=== PATIENT | female | born 1960 | race Caucasian/White ===

== ENCOUNTER 2019-01-20 14:54 | Emergency (ER) | payer MEDICARE, OTHER ==
[~2019-01-20] VITALS: Ht 175.3 cm; Wt 54.4 kg
[2019-01-20 15:02] VITALS: BP 116/68
--- NOTE | 2019-01-20 15:08 | NUR ---
PER [facility] PT FELL ON PADDED FLOOR FROM FALL OUT OF BED APROXIMATLY 2FT HIGH. PT REPORTS LT LEG PAIN AT 6/10, RT ARM PAIN AT 4/10. PER [facility] PT IS WORRIED ABOUT POSSIBLE INFECTION ON RT 1ST TOE FROM HAVING HANG NAIL REMOVED. PT HAS TRAC FROM RESPIRATORY FAILURE SECONDARY TO HEMORRHAGE FROM FALL. PT [place] [facility] PT IS THERE FOR RECOVERY FROM ALCOHOL ABUSE. . DENIES N/V/D; SKIN IS PINK/WARM/DRY; AAOX4 LUNGS CLEAR BL; HR EVEN AND REGULAR; PT DENIES ANY FEVER, CP, SOB, OR COUGH AT THIS TIME; PATIENT STATES PAIN OF 6/10 AT THIS TIME; VSS; PATIENT POSITIONED FOR COMFORT; HOB ELEVATED; BEDRAILS UP X2; BED DOWN. ER MD MADE AWARE OF PT STATUS.
--- NOTE | 2019-01-20 15:35 | NUR ---
Dr. George evaluating patient at bedside.
[2019-01-20] MEDS ORDERED: ACETAMINOPHEN 160 MG/5 ML UDC GT ONE (15:50)
--- NOTE | 2019-01-20 15:51 | NUR ---
facilities operations technician at bedside.
--- NOTE | 2019-01-20 17:00 | NUR ---
PT CALLED IN, UPDATED PT'S CONDITION. PT REQUESTED TO HAVE A HEAD CT DUE TO PT HAD BRAIN SURGERY IN OCT 2018 IN [place], TRIED TO TRANSFER PHONE CALL TO , PT'S HANGED UP WHEN PICKED UP PHONE. PASSED ALL THE INFORMATION TO DR. RICHARDSON.
--- NOTE | 2019-01-20 17:07 | NUR ---
PT LEFT FOR CT PER TECH VIA [facility].
--- NOTE | 2019-01-20 18:02 | NUR ---
PT HAD BM, CLEANED PT. NEW DIAPER APPLIED.
--- NOTE | 2019-01-20 18:21 | NUR ---
DR RICHARDSON TALKING ON THE PHONE WITH PT'S [facility].
--- NOTE | 2019-01-20 18:27 | NUR ---
DR RICHARDSON WILL CALL PT'S PRIMARY DR AND TALKED WITH HIM REGARDING PT'S CARE. AFTER WHICH RN WILL CALL PT'S ([facility] @ [phone]) FOR UPDATE REGARDING UPDATE ON PT'S CARE.
--- NOTE | 2019-01-20 18:42 | NUR ---
CALLED [facility] AT [phone] AND LEFT MESSAGE TO INFORM HIM HIS WOULD BE RETURNED TO THE FACILITY
--- NOTE | 2019-01-20 19:00 | NUR ---
PT TRIED TO GET OUT OF BED, EXPLAINED TO PT WE ARE WAITING FOR A RIDE TO TAKE HER BACK TO [facility] .
--- NOTE | 2019-01-20 19:09 | NUR ---
REPORT GIVEN TO PM NURSE MONTES DE OCA.
--- NOTE | 2019-01-20 19:15 | NUR ---
[facility] HERE FOR PT PICKUP.
--- NOTE | 2019-01-20 19:23 | NUR ---
SPOKE TO AND INFORMED HIM PT WAS RETURNING.
--- NOTE | 2019-01-20 19:23 | NUR ---
[facility] AT BEDSIDE TO TRANSPORT PT BACK TO FACILITY. Patient discharged with v/s stable. Written and verbal after care instructions given and explained. Patient acting appropriate to baseline. Patient verbalized understanding. Ambulance Transport with to [facility]p. All questions addressed prior to discharge. was contacted and make aware of patients return to facility. Advised to follow up with PMD.
[2019-01-20 19:26] VITALS: BP 118/61
--- NOTE | 2019-01-20 19:26 | NUR ---
SPOKE TO [facility] INFORMING THEM THAT PT IS RETURNING.
== END 2019-01-20 19:23 | disposition home or self-care (01) ==
LOC: MED 14:54
DX: S49.82XA Other specified injuries of left shoulder and upper arm, initial encounter (principal); R51 Headache; E11.9 Type 2 diabetes mellitus without complications; G40.909 Epilepsy, unspecified, not intractable, without status epilepticus; Z98.890 Other specified postprocedural states; Z93.1 Gastrostomy status; Z86.79 Personal history of other diseases of the circulatory system; W19.XXXA Unspecified fall, initial encounter; Y93.89 Activity, other specified; Y92.89 Other specified places as the place of occurrence of the external cause; Y99.8 Other external cause status
CPT/HCPCS: 70450; 73030; 99284; Q0092

== ENCOUNTER 2019-03-05 19:49 | Inpatient (IN) | payer MEDICARE, OTHER ==
[~2019-03-05] VITALS: Ht 165.1 cm; Wt 58.5 kg
[2019-03-05 19:49] VITALS: BP 130/85
--- NOTE | 2019-03-05 19:49 | NUR ---
59 Y/O FEMALE BIB EMS FROM [facility] WITH C/O ALTERED LEVEL OF CONSCIOUSS. PER DAUGHTER PT IS NORMALLY AOX4 TOOK SZ MEDICATIONS IS NOW ALTERED. PT ALSO REPORTS CHEST PAIN. 0.4 MG NITRO WAS GIVEN BY EMS. DAUGHTER ALSO REPORTS FALL 03/04/19. PT ON O2 NC @2LPM UPON ARRIVAL. SNORING WITH RESPIRATIONS WHILE AWAKE. SLOW TO RESPOND. MAKES EYE CONTACT. CONFUSED TO DAY/TIME/EVENT. FOLLOWS COMMANDS. REPORTED NONAMBULATORY BUT MOVES IN BED. POSITIONED IN BED WITH X2 SIDE RAILS UP. ER MD AT BEDSIDE FOR EVALUATION. CONTINUE TO MONITOR. PMH---CIRRHOSIS, EPILEPSY, TBI, NONAMBULATORY, DM, HYPOTENSION, ALCOHOLISM NKA
--- NOTE | 2019-03-05 19:49 | NUR ---
PATIENT BIB EMS TO ER BED 8.
[2019-03-05] MEDS ORDERED: NACL 0.9% 500 ML IV SCH (20:04)
[2019-03-05] MEDS ORDERED: LANS15EC28 PEG (20:09)
[2019-03-05] MEDS ORDERED: BISA-213 RC (20:09)
[2019-03-05] MEDS ORDERED: THIA-34 PO (20:09)
[2019-03-05] MEDS ORDERED: SPIR50TA GT (20:09)
[2019-03-05] MEDS ORDERED: [UNRECOGNIZED DRUG - CODE] GT (20:09)
[2019-03-05] MEDS ORDERED: SODI100076 GT (20:09)
[2019-03-05] MEDS ORDERED: LACT10SO1 PO (20:09)
[2019-03-05] MEDS ORDERED: RIFA550T GT (20:09)
[2019-03-05] MEDS ORDERED: DOCU-299 PEG (20:09)
[2019-03-05] MEDS ORDERED: KEP500 GT (20:09)
[2019-03-05] MEDS ORDERED: MAGN400S60 PEG (20:09)
[2019-03-05] MEDS ORDERED: MIRT15TA GT (20:12)
--- NOTE | 2019-03-05 20:25 | NUR ---
Dr. Francisco examining patient.
[2019-03-05 20:36] LABS: BASOPHILS % (AUTO) 0.4 % (0.0-2.0); EOSINOPHILS # (AUTO) 0.1 K/uL (0-0.4); HEMATOCRIT 35.2 % (36-48); HEMOGLOBIN 12.4 g/dL (12.0-16.0); LYMPHOCYTES % (AUTO) 15.2 % (20.5-51.1); MEAN CORPUSCULAR HEMOGLOBIN 33 pg (27-31); MEAN CORPUSCULAR HGB CONC 35 g/dL (33-37); MEAN CORPUSCULAR VOLUME 92.9 fL (80-94); MONOCYTES # (AUTO) 0.3 K/uL (0.8-1.0); MONOCYTES % (AUTO) 4.4 % (1.7-9.3); NEUTROPHILS # (AUTO) 5.5 K/uL (1.8-7.7); RED BLOOD CELL COUNT(AUTO) 3.79 MIL/uL (4.20-5.40); RED CELL DISTRIBUTION WIDTH 13.5 % (11.6-13.7); WHITE BLOOD COUNT (AUTO) 6.9 K/uL (4.8-10.8)
--- NOTE | 2019-03-05 20:36 | NUR ---
PT WAS TAKEN OFF 02 BY ER . PT TOLERATED WELL. 02 SAT IS 100 % ON ROOM AIR. CONT. TO MONITOR.
[2019-03-05 20:37] LABS: PLATELET COUNT (AUTO) 74 K/uL (140-450)
--- NOTE | 2019-03-05 20:40 | NUR ---
PT TOLLERATING RA. 02SAT 98%, RR 18. NO N/V. NO CP. CONTINUE TO MONITOR.
--- NOTE | 2019-03-05 20:53 | NUR ---
STRAIGHT CATH WAS DONE, PT TOLERATED WELL. U/A COLLECTED.
[2019-03-05 20:58] LABS: ALBUMIN 3.8 g/dL (3.4-5.0); ANION GAP 17.2 (8-16); CARBON DIOXIDE 22.7 mmol/L (21-32); CREATININE 1.1 mg/dL (0.6-1.3); POTASSIUM 3.9 mmol/L (3.5-5.1)
--- NOTE | 2019-03-05 21:00 | NUR ---
PT IN BED RESTING. PT AWAKE. SNORING WITH RESPIRATIONS SUBSIDED. FOLLOWS COMMANDS AND SPEECH CLEARING. CONTINUE TO MONITOR.
--- NOTE | 2019-03-05 21:05 | NUR ---
PT RETURN FROM RAD
--- NOTE | 2019-03-05 21:10 | NUR ---
PT'S [facility] KUMAR CALLED ER. HE WANTED DETAILED MEDICAL INFORMATION GIVEN OVER THE PHONE. HE WAS DENIED AND EXPLAINED THAT SPECIFIC INFORMATION CANNOT BE GIVEN D/T HIPPA LAWS. HE WAS IRATE AND SPOKE TO MOBILITY ARCHITECT MANAGER. JH STATES THAT HE WANTS PT TRANSFERED TO [place]. HE WAS INFORMED THAT WE CANNOT DO THAT EITHER. HE THEN STATED THAT IF HE HAS TO COME TO THE HOSPITAL THAT WE NEED TO CALL THE POLICE BECASUSE HE WILL PHYSICALLY HARM STAFF.
[2019-03-05] MEDS ORDERED: LACTULOSE 20 GM/30 ML UDC PO ONE (21:30)
[2019-03-05 21:36] LABS: APPEARANCE,URINE HAZY (CLEAR); BILIRUBIN,URINE NEGATIVE (NEGATIVE); BLOOD, URINE TRACE-L (NEGATIVE); COLOR,URINE YELLOW (YELLOW); LEUKOCYTE ESTERASE ,URINE NEGATIVE (NEGATIVE); NITRITE, URINE NEGATIVE (NEGATIVE); PH,URINE 6.5 (5.0-9.0); UGLUCOSE NEGATIVE (NEGATIVE)
--- NOTE | 2019-03-05 22:00 | NUR ---
PT ANSWERING QUESTIONS APPROPRIATELY. SHE ASKED FOR . PT INFORMED THAT HE MAY COME TO THE HOSPITAL. SHE IS ALERT TO NAME AND EVENT. SPEECH IS CLEAR BUT SLOW. SHE FOLLOWS COMMANDS APPROPRIATELY. VSS. CONTINUE TO MONITOR.
[2019-03-05] MEDS ORDERED: NACL 0.9% 1,000 ML IV SCH (22:22)
[2019-03-05] MEDS ORDERED: DOCUSATE SODIUM 100 MG GELCAP PO PRN (22:25)
[2019-03-05] MEDS ORDERED: ACETAMINOPHEN 325 MG TAB PO PRN (22:25)
[2019-03-05] MEDS ORDERED: ZOLPIDEM 5 MG TAB PO PRN (22:25)
[2019-03-05] MEDS ORDERED: ONDANSETRON 4 MG/2 ML VIAL IM/IVP PRN (22:25)
[2019-03-05] MEDS ORDERED: HYDROcodone/APAP 5/325 MG 1 TAB TAB PO PRN (22:25)
[2019-03-05] MEDS ORDERED: MORPHINE SULFATE 2 MG/ML SYR IVP PRN (22:25)
[2019-03-05] MEDS ORDERED: ALBUTEROL SULFATE/IPRATROPIU 3 ML SOL IH PRN (22:35)
[2019-03-05] MEDS ORDERED: MAGNESIUM HYDROXIDE 2400 MG/30 ML UDC PEG SCH (22:35)
[2019-03-05 22:45] LABS: BARBITURATE, URINE NEG. ng/ml (NEG <=200); BENZODIAZEPINE, URINE NEG. ng/mL (NEG <=200); CANNABINOID, URINE NEG. ng/mL (NEG <=50); COCAINE, URINE NEG. ng/mL (NEG <=300); OPIATE, URINE NEG. ng/mL (NEG <=2000); PHENCYCLIDINE SCREEN,URINE NEG. ng/mL (NEG <=25)
[2019-03-05 22:55] VITALS: BP 139/77
--- NOTE | 2019-03-05 22:55 | NUR ---
REPORT GIVEN AND CARE TRANSFERED TO MICHELLE RN ROOM 119A. TRANSFERED VIA GURNEY WITH VSS.
[2019-03-05 22:57] LABS: CHOL/HDL RATIO 3.1 (1-4.5); MAGNESIUM 1.9 mg/dL (1.8-2.4); THYROID STIMULATING HORMONE 9.57 uIU/mL (0.34-3.74)
--- NOTE | 2019-03-05 23:00 | NUR ---
PT BROUGHT UP TO UNIT VIA GURNEY AND TRANSFERRED TO 119A. REPORT GIVEN BY PEDRO MAYO RN. PT AWAKE BUT DROWSY RESPONDS TO NAME AND LIGHT TOUCH. PERRLA. PT SKIN INTACT. SHE DOES HAVE G TUBE. PT INCONTINENT AND UNABLE TO AMBULATE. PT ON FALLS AND SEIZURE PRECAUTIONS FOR HX OF EPILEPSY. IV SITE 22G LEFT HAND INTACT AND FLUSHED PATENT.
[2019-03-05] MEDS ORDERED: NITROGLYCERIN 0.4 MG TAB SL PRN (23:25)
[2019-03-06] MEDS ORDERED: MAGNESIUM HYDROXIDE 2400 MG/30 ML UDC PO PRN (00:05)
[2019-03-06] MEDS: DEXT 5% /NACL 0.9% 1,000 ML IV SCH ×2 (00:50→15:53)
--- NOTE | 2019-03-06 02:00 | NUR ---
PT ASLEEP IN BED NO S/S OF PAIN OR DISTRESS NOTED. ALL FALLS AND SEIZURE PRECAUTION IN PLACE.
[2019-03-06 04:00] VITALS: BP 127/71
--- NOTE | 2019-03-06 04:30 | NUR ---
PT TURNED , CHANGED AND REPOSITIONED. ALL FALLS AND SEIZURE PRECAUTIONS IN PLACE. PT IS AOX1. PT REORIENTED. IV SITE IN PLACE AND RUNNING FLUID ORDERED.
--- NOTE | 2019-03-06 05:40 | NUR ---
SPOKE WITH JH OF 37 YEARS, IS [employer]. HIS NUMBER IS . HE WAS UPDATED ON PT CONDITION AND HE SPOKE WITH RESIDENT WHO IS CONFUSED AND TRYING TO GET OUT OF BED. AFTER PHONE CONVERSATION, PT WENT BACK TO SLEEP.
[2019-03-06 06:24] LABS: ANION GAP 17.3 (8-16); CARBON DIOXIDE 21.5 mmol/L (21-32); CREATININE 1.1 mg/dL (0.6-1.3); POTASSIUM 3.8 mmol/L (3.5-5.1)
[2019-03-06 06:26] LABS: MAGNESIUM 1.8 mg/dL (1.8-2.4); PHOSPHORUS 4.2 mg/dL (2.5-4.9)
[2019-03-06] MEDS: LEVOTHYROXINE 0.025 MG TAB PO SCH (06:43)
--- NOTE | 2019-03-06 06:51 | NUR ---
FINGERSTICK IS 169 PT GIVEN ORDERED SYNTHROID
[2019-03-06 07:00] LABS: BASOPHILS % (AUTO) 0.5 % (0.0-2.0); EOSINOPHILS # (AUTO) 0.1 K/uL (0-0.4); EOSINOPHILS % (AUTO) 1.8 % (0.0-4.0); HEMATOCRIT 30.7 % (36-48); HEMOGLOBIN 10.9 g/dL (12.0-16.0); LYMPHOCYTES # (AUTO) 1.2 K/uL (2.5-16.5); LYMPHOCYTES % (AUTO) 27.8 % (20.5-51.1); MEAN CORPUSCULAR HEMOGLOBIN 33 pg (27-31); MEAN CORPUSCULAR HGB CONC 36 g/dL (33-37); MEAN CORPUSCULAR VOLUME 93.3 fL (80-94); MONOCYTES # (AUTO) 0.2 K/uL (0.8-1.0); MONOCYTES % (AUTO) 4.9 % (1.7-9.3); NEUTROPHILS # (AUTO) 2.9 K/uL (1.8-7.7); RED BLOOD CELL COUNT(AUTO) 3.29 MIL/uL (4.20-5.40); RED CELL DISTRIBUTION WIDTH 13.4 % (11.6-13.7)
--- NOTE | 2019-03-06 07:30 | NUR ---
CARE ENDORSED TO AM SHIFT, PT IN STABLE CONDITION.
--- NOTE | 2019-03-06 07:31 | NUR ---
RECEIVED BEDSIDE REPORT FROM YARA MADRIGAL. PATIENT ON TELE MONITOR AND STANDARD PRECAUTIONS IN PLACE. PATIENT AAOX3 AND PATIENT ON BEDREST, ON ROOM AIR, AND SKIN INTACT. IV ON L FA 22 G INFUSING D5 NS AT 60, IV PATENT AND INTACT. BED IN LOW POSITION, CALL LIGHT WITHIN REACH, SIDE RAILS X2 UP
[2019-03-06] MEDS: ALBUTEROL SULFATE/IPRATROPIU 3 ML SOL IH SCH ×3 (07:46→19:25)
[2019-03-06 08:00] VITALS: BP 128/75
[2019-03-06] MEDS ORDERED: LANSOPRAZOLE 30 MG CAPDR GT SCH (08:00)
[2019-03-06 08:07] LABS: PLATELET COUNT (AUTO) 57 K/uL (140-450); WHITE BLOOD COUNT (AUTO) 4.5 K/uL (4.8-10.8)
[2019-03-06] MEDS: PROPRANOLOL 20 MG TAB GT SCH ×2 (08:35→20:40)
[2019-03-06] MEDS: THIAMINE 100 MG TAB PO SCH (08:35)
[2019-03-06] MEDS: SPIRONOLACTONE 50 MG TAB GT SCH (08:36)
[2019-03-06] MEDS: LISINOPRIL 5 MG TAB PO SCH (08:36)
[2019-03-06] MEDS: LACTULOSE 20 GM/30 ML UDC PO SCH ×2 (08:37→20:41)
[2019-03-06] MEDS: levETIRAcetam 100 MG/ML ORASYR GT SCH ×2 (08:37→20:40)
[2019-03-06] MEDS: RIFAXIMIN 550 MG TAB GT SCH ×2 (08:38→20:41)
--- NOTE | 2019-03-06 08:47 | NUR ---
PATIENT HAS BEEN SCREENED AND CATEGORIZED HIGH NUTRITION RISK. PATIENT WILL BE SEEN WITHIN 1-2 DAYS OF ADMISSION. 03/06/19-03/07/[address]
[2019-03-06] MEDS ORDERED: SODIUM CHLORIDE 1 GM TAB GT SCH (09:00)
[2019-03-06] MEDS ORDERED: METOPROLOL 25 MG TAB PO SCH (09:00)
[2019-03-06] MEDS ORDERED: ASPIRIN 81 MG TAB.CHEW PO SCH (09:00)
[2019-03-06] MEDS ORDERED: NON-FORMULARY ITEM (Lansoprazole* (Prevacid 24Hr*) 30 MG) PEG SCH (09:00)
--- NOTE | 2019-03-06 09:04 | NUR ---
ADMINISTERED SCHEDULED MEDS. PATIENT TOLERATED WELL. GASTRIC RESIDUAL 5 ML AND SWOOSH HEARD, FLUSHED BEFORE AND AFTER MEDS
[2019-03-06 12:00] VITALS: BP 133/78
--- NOTE | 2019-03-06 12:20 | NUR ---
SW called patient�s to conduct an assessment. Patient�s , Venu Bhatti [phone]. Venu stated that patient was under the care of Dr. Turner but could not recall PCP or her last appointment. Patient stated that patient stays at [facility], but would prefer to not return. Patient verified emergency contact information and stated that patient is dependent with all ADLs. Venu stated that his plans after discharge would preferably be for patient to be admitted to [facility] or [facility], but would accept returning to [facility] if other SNFs are not available. SW/CM will follow up as needed.
--- NOTE | 2019-03-06 12:24 | NUR ---
CALLED [facility] AND REQUESTING IF [facility]NOTE 3[facility] OR [facility] ARE CONTRACTED (PER FAMILY REQUEST) [facility] IS CONTRACTED AND FAXED ALL PAPER WORK [phone] AND WILL FOLLOW UP.
--- NOTE | 2019-03-06 12:53 | NUR ---
PATIENT EATING LUNCH, ON ROOM AIR, NO DISTRESS NOTED
--- NOTE | 2019-03-06 14:22 | NUR ---
03/06/19 RD INITIAL ASSESSMENT COMPLETED PLEASE REFER TO NUTRITION ASSESSMENT UNDER CARE ACTIVITY FOR ESTIMATED NUTRITIONAL NEEDS. 1. RECOMMEND SWALLOW EVALUATION 2. RECOMMEND CCHO 60 HEPATIC DIET WITH TEXTURE AND LIQUID CONSISTENCY SUGGESTED BY SWALLOW EVALUATION. 3. IF PT FAILS SWALLOW EVALUATION, RECOMMEND GLUCERNA 1.2 AT 55 ML/HR AND FREE WATER FLUSH 80 ML Q6H. 4. RECOMMEND MVI 5. RD TO FOLLOW-UP 2-3 DAYS, HIGH RISK [address]
[2019-03-06] MEDS: LORazepam 2 MG/ML VIAL IM/IVP PRN (15:42)
--- NOTE | 2019-03-06 15:46 | NUR ---
ADMINISTERED ATIVAN PRN. DR. QUEZADA AWARE. PATIENT TRYING TO GET OUT OF BED, PULLING OUT G TUBE, AND PULLING AT IV SITE
[2019-03-06 16:00] VITALS: BP 135/83
--- NOTE | 2019-03-06 16:43 | NUR ---
PATIENT CONFUSED THROUGHOUT DAY UNABLE TO FOLLOW COMMANDS FOR INCENTIVE SPIROMETRY Addendum: 03/06/19 at 1648 by Ruslan Gomez RT NP TO FOLLOW UP WITH MD FOR FURTHER RECOMMENDATIONS
--- NOTE | 2019-03-06 16:49 | NUR ---
CALLED DR KAREN QUEZADA PAGER #[phone] LEFT RETURN #[phone] FOR REVIEW OF INCENTIVE SPIROMETRY ORDER AND PATIENT LOC NOTED AT 2659
--- NOTE | 2019-03-06 17:17 | NUR ---
PATIENT REMOVING SOCKS, SHEETS, PULLING AT IV WITH LEGS DANGLED ON THE SIDE OF THE BED TRYING TO GET OUT OF BED. DR. QUEZADA MADE AWARE, WILL COME TO SEE PATIENT
[2019-03-06] MEDS ORDERED: LORazepam 2 MG/ML VIAL IM/IVP SCH (18:15)
--- NOTE | 2019-03-06 18:52 | NUR ---
PT TOO AGITATED. UNABLE TO DO ECHOCARDIOGRAM. WILL TRY AGAIN TOMORROW.
--- NOTE | 2019-03-06 19:05 | NUR ---
BEDSIDE REPORT GIVEN TO YARA CASTANEDA. PATIENT ENDORSED IN STABLE CONDITION
--- NOTE | 2019-03-06 19:25 | NUR ---
RECEIVED PT IN STABLE CONDITION FROM [facility] NURSE FOR CONTINUITY OF CARE. PT IS ASLEEP. ON TELE MONITOR. RESPIRATION EVEN AND UNLABORED. WITH HL ON THE LT HAND G#22. IVF TO CONTINUE . BED ON LOW POSITION. SIDE RAILS UP AND PADDED FOR SEIZURE PRECAUTION. CALL LIGHT PLACED WITHIN EASY REACH. WILL CONTINUE TO MONITOR.
--- NOTE | 2019-03-06 19:29 | NUR ---
GIVING HHN TX. PT KEEPS TAKING MASK OFF. RN AT BEDSIDE. NO SOB OR DISTRESS NOTED.
--- NOTE | 2019-03-06 20:30 | NUR ---
HAD A MODERATE AMOUNT FORMED STOOL. CLEANED AND KEPT DRY.
[2019-03-06 20:38] VITALS: BP 129/67
[2019-03-06] MEDS: ATORVASTATIN 20 MG TAB PO SCH (20:41)
[2019-03-06] MEDS: MIRTAZAPINE 15 MG TAB GT SCH (20:41)
[2019-03-06] MEDS: PANTOPRAZOLE 40 MG TABEC PO SCH (20:41)
--- NOTE | 2019-03-06 21:30 | NUR ---
PT IS ASLEEP. NO S/S DISCOMFORT /PAIN NOTED. WILL CONTINUE TO MONITOR.
--- NOTE | 2019-03-06 22:30 | NUR ---
PT IS ASLEEP. NO S/S OF ANY DISCOMFORT AND ANY RESPIRATORY DISTRESS NOTED. WILL CONTINUE TO MONITOR.
[2019-03-06 23:52] VITALS: BP 148/76
--- NOTE | 2019-03-06 23:55 | NUR ---
PT IS ASLEEP. BUT WOKE UP I CHECKED VITAL SIGNS. NO C/O ANY DISCOMFORT NOR DISTRESS NOTED .
--- NOTE | 2019-03-07 02:30 | NUR ---
PT AWAKE, STARTING TO PULL OUT IV TUBINGS. KEEP TUNINGS OUT OF SITE . WILL CONTINUE TO MONITOR.
[2019-03-07] MEDS: LORazepam 2 MG/ML VIAL IM/IVP PRN ×3 (03:03→21:33)
--- NOTE | 2019-03-07 03:03 | NUR ---
PT VERY CONFUSED AND TRYING TO PULL OUT TUBINGS AND GETTING OUT OF BED. ATIVAN IVP 1 MG GIVEN. WILL CONTINUE TO MONITOR.
[2019-03-07] MEDS: DEXT 5% /NACL 0.9% 1,000 ML IV SCH ×2 (04:34→17:00)
[2019-03-07 04:45] VITALS: BP 122/77
--- NOTE | 2019-03-07 05:00 | NUR ---
PT IS ASLEEP. WILL CONTINUE TO MONITOR.
--- NOTE | 2019-03-07 05:44 | NUR ---
NO BM THIS AM. WILL STILL NEED TO COLLECT STOOL SPECIMEN FOR OB. WILL ENDORSED TO AM NURSE.
[2019-03-07] MEDS: LEVOTHYROXINE 0.025 MG TAB PO SCH (06:16)
[2019-03-07] MEDS ORDERED: LANSOPRAZOLE 30 MG CAPDR GT SCH (06:30)
[2019-03-07] MEDS: ALBUTEROL SULFATE/IPRATROPIU 3 ML SOL IH SCH ×3 (06:37→19:15)
--- NOTE | 2019-03-07 06:44 | NUR ---
PT IS STILL CONFUSED. FREQUENT REORIENTATION DONE.
[2019-03-07 07:21] LABS: BASOPHILS % (AUTO) 0.4 % (0.0-2.0); EOSINOPHILS # (AUTO) 0.1 K/uL (0-0.4); EOSINOPHILS % (AUTO) 1.9 % (0.0-4.0); HEMATOCRIT 30.4 % (36-48); LYMPHOCYTES # (AUTO) 1.1 K/uL (2.5-16.5); LYMPHOCYTES % (AUTO) 30.9 % (20.5-51.1); MEAN CORPUSCULAR HEMOGLOBIN 34 pg (27-31); MEAN CORPUSCULAR HGB CONC 36 g/dL (33-37); MEAN CORPUSCULAR VOLUME 93.3 fL (80-94); MONOCYTES # (AUTO) 0.2 K/uL (0.8-1.0); MONOCYTES % (AUTO) 6.8 % (1.7-9.3); NEUTROPHILS # (AUTO) 2.1 K/uL (1.8-7.7); PLATELET COUNT (AUTO) 60 K/uL (140-450); RED BLOOD CELL COUNT(AUTO) 3.26 MIL/uL (4.20-5.40); RED CELL DISTRIBUTION WIDTH 13.1 % (11.6-13.7); WHITE BLOOD COUNT (AUTO) 3.5 K/uL (4.8-10.8)
--- NOTE | 2019-03-07 07:25 | NUR ---
ENDORSED PT IN STABLE CONDITION TO AM NURSE.
--- NOTE | 2019-03-07 07:26 | NUR ---
RECEIVED REPORT FROM HUMAN RESOURCES RECORDS CLERK NURSE. PATIENT LYING DOWN IN BED CONFUSED, TRYING TO GET UP AND PULLING ON IV TUBES. AAOX1, CONFUSED. SKIN COLOR APPROPRIATE TO ETHNICITY, WARM TO TOUCH. RESPIRATIONS EVEN, UNLABORED, ON ROOM AIR. ABDOMEN SOFT, NON-DISTENDED. GTUBE SITE IN PLACE AND INTACT. REVIEWED PLAN OF CARE WITH PATIENT. PATIENT VERBALIZED UNDERSTANDING. SAFETY MEASURES IN PLACE, CALL LIGHT WITHIN REACH. WILL CONTINUE TO MONITOR.
[2019-03-07 07:34] LABS: ANION GAP 14.4 (8-16); CARBON DIOXIDE 21.5 mmol/L (21-32); POTASSIUM 3.9 mmol/L (3.5-5.1)
[2019-03-07 08:00] VITALS: BP 160/79
[2019-03-07] MEDS: LACTULOSE 20 GM/30 ML UDC PO SCH ×2 (09:51→20:32)
[2019-03-07] MEDS: levETIRAcetam 100 MG/ML ORASYR GT SCH ×2 (09:51→20:32)
[2019-03-07] MEDS: PANTOPRAZOLE 40 MG TABEC PO SCH ×2 (09:51→20:31)
[2019-03-07] MEDS: MULTIVITAMIN 1 TAB PO SCH (09:51)
[2019-03-07] MEDS: THIAMINE 100 MG TAB PO SCH (09:51)
[2019-03-07] MEDS: RIFAXIMIN 550 MG TAB GT SCH ×2 (09:51→20:31)
[2019-03-07] MEDS: LISINOPRIL 5 MG TAB PO SCH (09:52)
[2019-03-07] MEDS: SPIRONOLACTONE 50 MG TAB GT SCH (09:52)
[2019-03-07] MEDS: PROPRANOLOL 20 MG TAB GT SCH ×2 (09:52→20:32)
--- NOTE | 2019-03-07 10:05 | NUR ---
PATIENT LYING DOWN IN BED. PATIENT IN AND OUT OF SLEEPING. AT BEDSIDE. PATIENT CONTINUES TO BE CONFUSED. SCHEDULED MEDICATIONS DUE GIVEN. WILL CONTINUE TO MONITOR.
--- NOTE | 2019-03-07 12:11 | NUR ---
DC PLANNING Called & spoke w beverley Lea Davy, ph [phone], states will be ok w pt going back to [facility] only if Dr Flood is going to be following pt there. [facility] not [facility] different [facility]. Left msg for Dr Flood if going to be following pt @ [facility]. Addendum: 03/07/19 at 1449 by Shireen Damon CM Called & spoke nika Flood states will be able to follow pt @ [facility] but not until March 20. Called & spoke w beverley Lea & informed, states ok for pt to dc back to [facility], aware Dr Flood not starting until March 20.
--- NOTE | 2019-03-07 12:30 | NUR ---
PATIENT LYING DOWN IN BED, SLEEPING, AROUSABLE BY VOICE. NO DISTRESS NOTED. CONFUSED. WILL CONTINUE TO MONITOR.
--- NOTE | 2019-03-07 14:56 | NUR ---
DC PLANNING Received call from Shireen @ [facility], ph [phone], updated on pt status. Informed plan for SNF upon dc. States will pt was @ [facility], will need to f/u to see if qualifies for SNF.
[2019-03-07 16:00] VITALS: BP 150/67
--- NOTE | 2019-03-07 17:05 | NUR ---
PATIENT LYING DOWN IN BED. CONTINUES TO BE CONFUSED, CONTINOUSLY TRYING TO GET OUT OF BED. ATIVAN GIVEN AT THIS TIME. WILL CONTINUE TO MONITOR.
--- NOTE | 2019-03-07 19:13 | NUR ---
GAVE REPORT TO DISTRIBUTION SYSTEM OPERATOR NURSE FOR CONTINUITY OF CARE. PATIENT IN STABLE CONDITION.
--- NOTE | 2019-03-07 19:14 | NUR ---
RECEIVED REPORT FROM DAY SHIFT NURSE FOR CONTINUITY OF CARE. PATIENT LYING DOWN IN BED, AWAKE. PATIENT IS CONFUSED. NO IV LINE IN PLACE. PATIENT IS IN ROOM AIR. NO SIGNS OF DISTRESS AT THIS TIME. WILL MONITOR PATIENT THROUGHOUT THE SHIFT.
--- NOTE | 2019-03-07 19:21 | NUR ---
PT REFUSED HHNTX, SAID SHE DID NOT NEED IT. PT SATURATING WELL AT 98%, BREATH SOUNDS WERE CLEAR. WILL CONTINUE TO MONITOR THE PT
[2019-03-07 20:00] VITALS: BP 138/78
--- NOTE | 2019-03-07 20:00 | NUR ---
BLOOD SUGAR WAS CHECKED RESULT 307. PAGED DR. TURNER RESIDENT ON DUTY. MADE AWARE AND WILL DO ORDER FOR INSULIN .
--- NOTE | 2019-03-07 20:15 | NUR ---
INSERTED NEW IV ON LEFT FOREARM 22 GA. CLEAR, INTACT AND PATENT.
[2019-03-07] MEDS: MIRTAZAPINE 15 MG TAB GT SCH (20:31)
[2019-03-07] MEDS: ATORVASTATIN 20 MG TAB PO SCH (20:31)
--- NOTE | 2019-03-07 20:31 | NUR ---
MEDICATION ADMINISTERED ORDERED THROUGH G-TUBE. PATIENT TOLERATED WELL.
[2019-03-07] MEDS ORDERED: DEXTROSE 50% 50 ML SYR IVP PRN (20:50)
[2019-03-07] MEDS: BLOOD GLUCOSE MONITORING 1 DEV DEV FS SCH (20:55)
[2019-03-07] MEDS: INSULIN LISPRO SLIDING SCALE 100 UNITS/ML VIAL SUBQ PRN (21:08)
--- NOTE | 2019-03-07 21:33 | NUR ---
PATIENT STARTED TO BECOME AGITATED, PULLING HER IV OUT. ADMINISTERED ATIVAN IV PUSH ORDERED. WILL CONTINUE TO MONITOR PATIENT.
--- NOTE | 2019-03-07 22:30 | NUR ---
MADE ROUNDS. PATIENT IS LYING DOWN IN BED, ASLEEP, WITH NO SIGNS OF DISTRESS. WILL CONTINUE TO MONITOR PATIENT.
[2019-03-08] VITALS: BP 133/54
--- NOTE | 2019-03-08 00:10 | NUR ---
PATIENT LYING DOWN IN BED, ASLEEP. VITAL SIGNS TAKEN AND CHARTED. PATIENT HAS NO SIGNS OF DISTRESS. WILL CONTINUE TO MONITOR PATIENT.
--- NOTE | 2019-03-08 02:00 | NUR ---
MADE ROUNDS. PATIENT LYING DOWN IN BED, ASLEEP, WITH NO SIGNS OF DISTRESS NOTED. WILL CONTINUE TO MONITOR PATIENT.
--- NOTE | 2019-03-08 04:05 | NUR ---
MADE ROUNDS, PATIENT APPEARS TO BE ASLEEP, WITH NO SIGNS OF DISTRESS. WILL CONTINUE TO MONITOR PATIENT.
[2019-03-08] MEDS: DEXT 5% /NACL 0.9% 1,000 ML IV SCH ×2 (04:10→20:08)
[2019-03-08] MEDS: LEVOTHYROXINE 0.025 MG TAB PO SCH ×2 (05:32→06:19)
[2019-03-08] MEDS: BLOOD GLUCOSE MONITORING 1 DEV DEV FS SCH ×4 (05:33→20:07)
--- NOTE | 2019-03-08 06:00 | NUR ---
PATIENT TOLERATED G-TUBE FEEDING. INCREASED RATE TO 40ML/HR.
[2019-03-08] MEDS: INSULIN LISPRO SLIDING SCALE 100 UNITS/ML VIAL SUBQ PRN ×3 (06:17→20:33)
--- NOTE | 2019-03-08 06:17 | NUR ---
BLOOD SUGAR THIS AM WAS CHECKED RESULT 235. INSULIN COVERAGE HUMALOG 4 UNITS SUBQ GIVEN.
[2019-03-08] MEDS: ALBUTEROL SULFATE/IPRATROPIU 3 ML SOL IH SCH ×3 (06:45→19:28)
--- NOTE | 2019-03-08 06:56 | NUR ---
WILL ENDORSE TO DAY SHIFT PATIENT'S CONTINUITY OF CARE. PATIENT IS LYING DOWN, SLEEPING, IN STABLE CONDITION, WITH NO SIGNS OF DISTRESS.
--- NOTE | 2019-03-08 07:10 | NUR ---
RECEIVED REPORT FROM PRESSURE TEST OPERATOR NURSE. PT SLEEPING COMFORTABLY IN BED. LUNG SOUNDS CLEAR UPON AUSCULTATION. IV ON LT FOREARM 22 GA RUNNING IVF PER ORDER. IV DRESSING IS CLEAN, DRY AND INTACT. ABDOMEN SOFT AND FLAT, ACTIVE BOWEL SOUNDS, LBM 03/07. GT IS INTACT AND IN PLACE ON LT UPPER ABDOMEN, GLUCERNA FEEDING RUNNING AT 40ML/HR. SKIN COLOR IS APPROPRIATE TO ETHNICITY, WARM TO TOUCH. SKIN IS INTACT, NO REDNESS NOTED. WILL REVIEW PLAN OF CARE WITH PT WHEN AWAKE. PT IN FALL PRECAUTIONS WITH FALL RISK SIGN, YELLOW ARM BAND, YELLOW GOWN, AND YELLOW SOCKS. SAFETY MEASURES IN PLACE, BED ON LOW POSITION, BED ALARM ON. CALL LIGHT WITHIN REACH.
[2019-03-08 08:00] VITALS: BP 122/67
--- NOTE | 2019-03-08 09:00 | NUR ---
PT GIVEN MEDICATIONS VIA GTUBE. RESIDUAL CHECKED AT 80ML. PT TOLERATING FEEDING WELL. JH AT BEDSIDE.
[2019-03-08] MEDS ORDERED: glipiZIDE 10 MG TAB PO SCH (09:30)
[2019-03-08] MEDS: levETIRAcetam 100 MG/ML ORASYR GT SCH ×2 (09:52→20:08)
[2019-03-08] MEDS: RIFAXIMIN 550 MG TAB GT SCH ×2 (09:53→20:09)
[2019-03-08] MEDS: PANTOPRAZOLE 40 MG TABEC PO SCH ×2 (09:53→20:09)
[2019-03-08] MEDS: LISINOPRIL 5 MG TAB PO SCH (09:53)
[2019-03-08] MEDS: THIAMINE 100 MG TAB PO SCH (09:54)
[2019-03-08] MEDS: PROPRANOLOL 20 MG TAB GT SCH ×2 (09:54→20:09)
[2019-03-08] MEDS: SPIRONOLACTONE 50 MG TAB GT SCH (09:54)
[2019-03-08] MEDS: MULTIVITAMIN 1 TAB PO SCH (09:54)
[2019-03-08] MEDS: LORazepam 2 MG/ML VIAL IM/IVP PRN ×3 (09:55→21:37)
[2019-03-08] MEDS: LACTULOSE 20 GM/30 ML UDC PO SCH ×2 (09:55→20:11)
--- NOTE | 2019-03-08 09:55 | NUR ---
PT TRYING TO REMOVE ABDOMINAL BINDER AND IS RESTLESS. PT GIVEN ATIVAN FOR ANXIETY. WILL CONTINUE TO MONITOR.
[2019-03-08 09:58] LABS: BASOPHILS % (AUTO) 0.6 % (0.0-2.0); EOSINOPHILS # (AUTO) 0.1 K/uL (0-0.4); EOSINOPHILS % (AUTO) 1.9 % (0.0-4.0); HEMOGLOBIN 10.8 g/dL (12.0-16.0); LYMPHOCYTES % (AUTO) 26.9 % (20.5-51.1); MEAN CORPUSCULAR HEMOGLOBIN 33 pg (27-31); MEAN CORPUSCULAR HGB CONC 36 g/dL (33-37); MEAN CORPUSCULAR VOLUME 92.2 fL (80-94); MONOCYTES # (AUTO) 0.2 K/uL (0.8-1.0); MONOCYTES % (AUTO) 6.3 % (1.7-9.3); NEUTROPHILS # (AUTO) 2.5 K/uL (1.8-7.7); NEUTROPHILS % (AUTO) 64.3 % (42.2-75.2); PLATELET COUNT (AUTO) 62 K/uL (140-450); RED BLOOD CELL COUNT(AUTO) 3.25 MIL/uL (4.20-5.40); RED CELL DISTRIBUTION WIDTH 13.7 % (11.6-13.7); WHITE BLOOD COUNT (AUTO) 3.9 K/uL (4.8-10.8)
--- NOTE | 2019-03-08 10:30 | NUR ---
SPEECH THERAPIST RECOMMENDS MECHANICAL SOFT CHOPPED DIET. PER ST PT MUST BE FULLY AWAKE FOR MEALS TO AVOID ASPIRATION.
[2019-03-08 10:49] LABS: ANION GAP 13.3 (8-16); CARBON DIOXIDE 22.9 mmol/L (21-32); CREATININE 1.1 mg/dL (0.6-1.3); POTASSIUM 4.2 mmol/L (3.5-5.1)
--- NOTE | 2019-03-08 10:49 | NUR ---
CAREER DEVELOPMENT CONSULTANT note [id number] CAREER DEVELOPMENT CONSULTANT provided bedside swallow evaluation, please see report for details. CAREER DEVELOPMENT CONSULTANT provided education to pt regarding purpose of evaluation and rationale for recommendations. Pt did not appear to benefit optimally from education provided. No family present. Recommend: 1) mechanical soft chopped textures 2) thin liquids 3) STRICT aspiration precautions (including pt must be FULLY awake/alert/upright for any PO intakes, alternate small/slow bites and sips, stop giving PO if pt becomes less alert/SOB/coughing) 4) safe swallow strategies sign posted above pt's HOB 5) CAREER DEVELOPMENT CONSULTANT to f/u for dysphagia/diet tolerance 2 x week x 1 week as pt able to participate safely G-codes: S1467-HJ [id number] MARSHALL NOMS level 4.
--- NOTE | 2019-03-08 10:50 | NUR ---
PHYSICAL THERAPIST AT BEDSIDE. ASSISTED PATIENT TO GET UP FROM BED TO A SITTING POSITION. PT TOLERATED ACTIVITY WELL.
--- NOTE | 2019-03-08 11:45 | NUR ---
PT IS SLEEPING COMFORTABLY IN BED. NO S/S OF DISTRESS AT THIS TIME.
--- NOTE | 2019-03-08 14:57 | NUR ---
PT IS TRYING TO GET OUT OF BED AND REMOVING GOWN. PT IS TEARFUL. REORIENTED PT AND ASSISTED WITH REPOSITIONING. PT GIVEN ATIVAN FOR ANXIETY. WILL CONTINUE TO MONITOR.
--- NOTE | 2019-03-08 15:46 | NUR ---
PT IS LYING SUPINE IN BED. NO S/S OF DISTRESS. RESPIRATIONS EVEN AND UNLABORED ON RA. WILL CONTINUE TO MONITOR.
[2019-03-08 16:00] VITALS: BP 145/78
--- NOTE | 2019-03-08 17:12 | NUR ---
ENDORSED PT TO COMMERCIAL SALES CONSULTANT NURSE FOR CONTINUITY OF CARE. NO SIGNS OF DISTRESS AT THIS TIME.
--- NOTE | 2019-03-08 17:30 | NUR ---
PT IS AAOX2, TEARFUL AND LOOKING FOR HER SISTER. PT REORIENTED TO PLACE AND PURPOSE. ASSISTED PT IN WEARING GOWN. CALL LIGHT WITHIN REACH.
--- NOTE | 2019-03-08 19:12 | NUR ---
RECEIVED REPORT FROM AM SHIFT NURSE FOR CONTINUITY OF CARE. PATIENT LYING DOWN IN BED, AWAKE, CONFUSED. PATIENT IS ON ROOM AIR AND SHOWS NO SIGNS OF DISTRESS AT THIS TIME. WILL MONITOR PATIENT THROUGHOUT PM SHIFT.
--- NOTE | 2019-03-08 19:37 | NUR ---
RECEIVED PATIENT ON ROOM AIR, PULSE OX SAT 100%. SCHEDULED BREATHING TREATMENT ADMINISTERED. TOLERATED TX WELL, NO ADVERSE SIDE EFFECTS. NO RESPIRATORY DISTRESS NOTED AT THIS TIME. WILL CONTINUE TO MONITOR.
[2019-03-08] MEDS ORDERED: LACTULOSE 20 GM/30 ML UDC PO ONE (20:00)
--- NOTE | 2019-03-08 20:07 | NUR ---
ADMINISTERED MEDICATIONS THROUGH G-TUBE ORDERED. G-TUBE PLACEMENT CHECKED AND IS PATENT, WITH NO RESIDUAL. PATIENT TOLERATED MEDICATIONS WELL. PATIENT EXHIBITING INCREASED AGITATION. WILL CONTINUE TO MONITOR PATIENT.
[2019-03-08] MEDS: ATORVASTATIN 20 MG TAB PO SCH (20:09)
[2019-03-08] MEDS: MIRTAZAPINE 15 MG TAB GT SCH (20:10)
--- NOTE | 2019-03-08 20:33 | NUR ---
BG 243 GAVE 4 UNITS HUMALOG
--- NOTE | 2019-03-08 20:45 | NUR ---
PATIENT RESTING IN BED, LESS AGITATED, BED ALARM ON, WILL CONTINUE TO MONITOR
--- NOTE | 2019-03-08 21:37 | NUR ---
PATIENT AGITATED, TRYING TO GET OUT OF BED, AND PULLING AT LINES, GAVE ATIVAN
[2019-03-09] VITALS: BP 137/73
--- NOTE | 2019-03-09 00:30 | NUR ---
PATIENT SLEEPING IN BED, NO SIGNS OF DISTRESS, SECURED IV WITH TAPE. BED IN LOWEST POSITION, BED ALARM ON, WILL CONTINUE TO MONITOR
--- NOTE | 2019-03-09 02:00 | NUR ---
MADE ROUNDS. PATIENT LYING DOWN IN BED, ASLEEP, WITH NO SIGNS OF DISTRESS. WILL CONTINUE TO MONITOR PATIENT.
--- NOTE | 2019-03-09 03:37 | NUR ---
CALLED [facility] SPOKE WITH VALUE STREAM COACH NATHAN GARDNER VACCINATION NOT KNOWN. WILL ENDORSE TO DAY SHIFT
--- NOTE | 2019-03-09 04:45 | NUR ---
APPLIED SCD TO PATIENT
[2019-03-09] MEDS: BLOOD GLUCOSE MONITORING 1 DEV DEV FS SCH ×4 (05:14→21:33)
[2019-03-09] MEDS: LEVOTHYROXINE 0.025 MG TAB PO SCH (05:45)
[2019-03-09] MEDS: INSULIN LISPRO SLIDING SCALE 100 UNITS/ML VIAL SUBQ PRN ×4 (05:50→21:34)
--- NOTE | 2019-03-09 06:00 | NUR ---
PATIENT LYING DOWN IN BED, ASLEEP. ADMINISTERED SYNTHROID MEDICATION ORDERED, THROUGH G-TUBE. PATIENT TOLERATED IT WELL. GLUCOSE POCT CHECKED - 273, ADMINISTERED INSULIN SLIDING SCALE ORDERED. WILL CONTINUE TO MONITOR PATIENT.
[2019-03-09 07:09] LABS: ANION GAP 16.1 (8-16); CARBON DIOXIDE 20.7 mmol/L (21-32); CREATININE 1.1 mg/dL (0.6-1.3); POTASSIUM 3.8 mmol/L (3.5-5.1)
[2019-03-09 07:14] LABS: BASOPHILS % (AUTO) 0.6 % (0.0-2.0); EOSINOPHILS # (AUTO) 0.1 K/uL (0-0.4); EOSINOPHILS % (AUTO) 1.7 % (0.0-4.0); HEMATOCRIT 28.9 % (36-48); HEMOGLOBIN 10.5 g/dL (12.0-16.0); LYMPHOCYTES % (AUTO) 29.1 % (20.5-51.1); MEAN CORPUSCULAR HEMOGLOBIN 33 pg (27-31); MEAN CORPUSCULAR HGB CONC 36 g/dL (33-37); MEAN CORPUSCULAR VOLUME 91.8 fL (80-94); MONOCYTES # (AUTO) 0.2 K/uL (0.8-1.0); MONOCYTES % (AUTO) 6.2 % (1.7-9.3); NEUTROPHILS # (AUTO) 2.1 K/uL (1.8-7.7); NEUTROPHILS % (AUTO) 62.4 % (42.2-75.2); PLATELET COUNT (AUTO) 61 K/uL (140-450); RED BLOOD CELL COUNT(AUTO) 3.15 MIL/uL (4.20-5.40); RED CELL DISTRIBUTION WIDTH 13.2 % (11.6-13.7); WHITE BLOOD COUNT (AUTO) 3.4 K/uL (4.8-10.8)
--- NOTE | 2019-03-09 07:25 | NUR ---
ENDORSED PATIENT TO AM SHIFT NURSE FOR CONTINUITY OF CARE. PATIENT LYING DOWN IN BED ASLEEP, WITH NO SIGNS OF DISTRESS. PATIENT IS IN STABLE CONDITION.
--- NOTE | 2019-03-09 07:40 | NUR ---
RECEIVED REPORT FROM STUDENT OUTREACH COORDINATOR NURSE. PT ASLEEP AND LYING IN BED, NO SIGNS OF DISTRESS AT THIS TIME. LUNG SOUNDS CLEAR THROUGHOUT, RESPIRATIONS EVEN AND UNLABORED. IV ON LT FA 22 GA RUNNING IVF PER ORDER. IV DRESSING CLEAN, INTACT AND DRY. STOMACH IS SOFT AND ROUND, BOWEL SOUNDS AUDIBLE UPON AUSCULTATION, LBM 03/08. GTUBE IN PLACE, RESIDUAL CHECKED AT 80ML, PT TOLERATING FEEDING WELL. GT FEEDING ON GLUCERNA 40 ML/HR, 300 ML WATER FLUSH Q6H. NO EDEMA TO EXTREMITIES. SKIN COLOR IS APPROPRIATE TO ETHNICITY, WARM TO TOUCH, SKIN IS INTACT. WILL REVIEW PLAN OF CARE WITH PT WHEN AWAKE. PT ON FALL PRECAUTIONS, SAFETY MEASURES IN PLACE. CALL LIGHT WITHIN REACH. WILL CONTINUE TO MONITOR.
[2019-03-09] MEDS: ALBUTEROL SULFATE/IPRATROPIU 3 ML SOL IH SCH ×3 (07:44→19:51)
[2019-03-09 08:00] VITALS: BP 116/65
--- NOTE | 2019-03-09 08:00 | NUR ---
CALLED [facility] [phone] SPOKE WITH CAMPBELL NOTIFIED THAT PT HAS DISCHARGE ORDER , PER CAMPBELL THE FACILITY HAS SOME ISSUE WITH THE PATIENT'S JH AND SHE WILL DISCUSS WITH STEWARD/STEWARDESS SECOND AND CALL BACK
[2019-03-09] MEDS ORDERED: SYN.075 PO (08:39)
[2019-03-09] MEDS: LISINOPRIL 5 MG TAB PO SCH (09:56)
[2019-03-09] MEDS: RIFAXIMIN 550 MG TAB GT SCH ×2 (09:56→21:11)
[2019-03-09] MEDS: MULTIVITAMIN 1 TAB PO SCH (09:56)
[2019-03-09] MEDS: THIAMINE 100 MG TAB PO SCH (09:56)
[2019-03-09] MEDS: SPIRONOLACTONE 50 MG TAB GT SCH (09:57)
[2019-03-09] MEDS: PROPRANOLOL 20 MG TAB GT SCH ×2 (09:57→21:10)
[2019-03-09] MEDS: levETIRAcetam 100 MG/ML ORASYR GT SCH ×2 (09:58→21:11)
[2019-03-09] MEDS: LACTULOSE 20 GM/30 ML UDC PO SCH ×2 (09:58→21:11)
[2019-03-09] MEDS: PANTOPRAZOLE 40 MG TABEC PO SCH ×2 (09:59→21:10)
--- NOTE | 2019-03-09 10:00 | NUR ---
CALLED CAMPBELL FOR F/U D/C ORDER SHE STATED SINCE PT'S WANTED DR QUEZADA TO FOLLOW THE PATIENT. DR QUEZADA CAN NOT FOLLOW UP WITH THE PATIENT BECAUSE HE IS NOT ON THE PROMED GROUP.
--- NOTE | 2019-03-09 11:00 | NUR ---
[facility] WILL F/U
--- NOTE | 2019-03-09 11:15 | NUR ---
Pt transferred via hospital bed from room 110A to 108A. All belongings with pt upon room transfer. Left hand IV intact with ongoing D5NS @ 20ml/hr. GT intact with ongoing Glucerna 1.2 @ 40ml/hr. Pt in no distress. HOB kept elevated at 30�. Call light within reach. Bed alarm on.
--- NOTE | 2019-03-09 14:01 | NUR ---
CALLED [facility] AND ASKED HER REGARDING ACCEPTING THE PATIENT ,PER [facility] SHE IS WAITING THE DIRECTOR TO MAKE A DECISION AND WILL CALL BACK. I RECEIVED A CALL FROM [facility] STATED NO BED AVAILABLE AT THIS TIME.
[2019-03-09] MEDS: LORazepam 2 MG/ML VIAL IM/IVP PRN ×2 (14:08→21:28)
--- NOTE | 2019-03-09 14:29 | NUR ---
03/09/19 RD FOLLOW UP COMPLETED PLEASE REFER TO NUTRITION ASSESSMENT UNDER CARE ACTIVITY FOR ESTIMATED NUTRITIONAL NEEDS. 1.CONTINUE GLUCERNA 1.2 AT 40 ML/HR -THIS WILL PROVIDE 960 ML OF VOLUME, 1,152 KCAL AND 57.6 GRAMS OF PROTEIN, WHICH MEETS 100% OF ESTIMATED NEEDS. 2. FREE WATER FLUSH 125 ML Q6H. 3. IF AND WHEN PATIENT IS FULLY AWAKE AND ALERT CONSIDER ADVANCING DIET TO MECHANICALLY SOFT TOLERATED. 4. RD TO FOLLOW-UP 2-3 DAYS, HIGH RISK CARMEN GARCIA RD
--- NOTE | 2019-03-09 15:40 | NUR ---
Per Dr Flood, he has been trying to contact Venu (spouse) re: SNF transfer denial. Per physician, he will be heading to surgery & wants nurse to contact Venu & have him call the doctor back after surgery. Left voicemail to Venu at [phone] per request. Awaiting call back.
--- NOTE | 2019-03-09 15:56 | NUR ---
SW was called by Shireen from [facility] who stated that insurance would not cover SNF skilled stay, "due to patient's rehab potential." SW informed patient's , Venu Bhatti [phone] that SNF was not authorized by insurance. Venu stated that he was unable to take care of patient at home. SW informed Venu that long-term placement would be the next option. Venu was upset that patient could not return to [facility]. Venu became angry and began using profanity towards SW. CORINA attempted to ask Venu where SW can begin long-term placement search. Venu became aggressive and ended phone call. SW/CM will follow up as needed.
[2019-03-09 16:00] VITALS: BP 120/70
--- NOTE | 2019-03-09 16:20 | NUR ---
Pt noted to be restless & pulling on IV lines. Pt denies any pain, no signs of distress. Explained risk of injury from pulling IV. Pt confused and unable to verbalize understanding. Redirected pt's attention to TV. Dr. Flood notified of behavior & requested to dc IVF d/t GT functioning well, & to change IV meds to po/GT. Per physician, he will input change of orders.
--- NOTE | 2019-03-09 16:26 | NUR ---
IVF discontinued. Right hand IV saline locked & remains wrapped in gauze bandage. Site asymptomatic. Abd binder in place. GT intact with ongoing Glucerna 1.2 @ 40ml/hr. HOB remains elevated at 30�. Will cont to monitor.
--- NOTE | 2019-03-09 17:24 | NUR ---
Daughter at bedside visiting pt. Pt asleep, respirations even & nonlabored. Addendum: 03/09/19 at 1752 by Germaine Gould RN Addendum: Dr. Flood arrived at bedside to speak with daughter & assess pt.
--- NOTE | 2019-03-09 18:04 | NUR ---
Daughter requested for oral grat d/t pt saying she is hungry. GT currently in place with ongoing Glucerna 1.2 @ 40ml/hr. Jell-O provided with daughter assisting with feeding. Pt is awake, verbally responsive, able to follow simple commands, sitting upright in bed. Pt able to eliseo jell-o well, no signs of aspiration.
--- NOTE | 2019-03-09 19:10 | NUR ---
ENDORSED PT TO EQUITY RESEARCH ANALYST NURSE FOR CONTINUITY OF CARE. PT IS LYING IN BED, NO DISTRESS AT THIS TIME.
--- NOTE | 2019-03-09 19:11 | NUR ---
REPORT RECEIVED FROM AM NURSE AT BEDSIDE. PT IN STABLE CONDITION. AAOX1. INTRODUCED SELF TO PT. BOARD UPDATED. NO COMPLAINT OF PAIN. NO SOB. AFEBRILE. PT HAS GTUBE IN PLACE. IV SITE L FA 22G SL PATENT AND INTACT. SKIN WARM, DRY, AND INTACT WITH NO OPEN WOUNDS. BED LOCKED IN LOW POSITION. CALL PHIPPS WITHIN REACH. SAFETY PRECAUTION IN PLACE. ALL NEEDS MET AT THIS TIME. Addendum: 03/09/19 at 2256 by Sohan Robbins RN GLUCERNA 1.2@40ML/HR WITH 300ML H20 FLUSH Q6H.
[2019-03-09] MEDS: MIRTAZAPINE 15 MG TAB GT SCH (21:10)
[2019-03-09] MEDS: ATORVASTATIN 20 MG TAB PO SCH (21:10)
--- NOTE | 2019-03-09 21:10 | NUR ---
INDERAL, KEPPRA, REMERON, XIFAXAN, CEPHULAC, PROTONIX, AND LIPITOR GIVEN THROUGH GTUBE. PT TOLERATED WELL.
--- NOTE | 2019-03-09 21:28 | NUR ---
ATIVAN GIVEN FOR ANXIETY. PT TOLERATED WELL.
--- NOTE | 2019-03-09 21:33 | NUR ---
BS 266. 6 UNITS OF HUMALOG GIVEN.
--- NOTE | 2019-03-09 23:00 | NUR ---
PT SLEEPING COMFORTABLY IN BED. NO S/S OF DISTRESS NOTED. WILL CONTINUE TO MONITOR.
[2019-03-10] VITALS: BP 149/83
--- NOTE | 2019-03-10 01:00 | NUR ---
PT SLEEPING COMFORTABLY IN BED. NO S/S OF DISTRESS NOTED. NO COMPLAINTS OF PAIN. NO SOB. AFEBRILE. WILL CONTINUE TO MONITOR.
--- NOTE | 2019-03-10 03:30 | NUR ---
PT LAYING IN BED AND GOES IN AND OUT OF SLEEP. NO S/S OF DISTRESS NOTED. RESPIRATIONS EVEN, UNLABORED, AND WNL. WILL CONTINUE TO MONITOR.
--- NOTE | 2019-03-10 05:00 | NUR ---
PT SLEEPING COMFORTABLY. NO S/S OF DISTRESS NOTED. WILL CONTINUE TO MONITOR.
[2019-03-10] MEDS: LEVOTHYROXINE 0.025 MG TAB PO SCH (05:32)
--- NOTE | 2019-03-10 05:32 | NUR ---
SYNTHROID GIVEN THROUGH GTUBE. BS 280. 6 UNITS OF HUMALOG GIVEN. PT TOLERATED WELL.
[2019-03-10] MEDS: BLOOD GLUCOSE MONITORING 1 DEV DEV FS SCH ×3 (05:34→17:15)
[2019-03-10] MEDS: INSULIN LISPRO SLIDING SCALE 100 UNITS/ML VIAL SUBQ PRN ×3 (05:36→17:15)
--- NOTE | 2019-03-10 07:05 | NUR ---
REPORT GIVEN TO AM NURSE AT BEDSIDE. PT IN STABLE CONDITION.
--- NOTE | 2019-03-10 07:08 | NUR ---
RECEIVED BEDSIDE REPORT FROM SITE LEASING AGENT RN FOR CONTINUITY OF CARE. PT IN STABLE CONDITION. DROWSY BUT AROUSABLE BY VOICE. CONFUSED, MUMBLING. FLACC 0. RESPIRATIONS EVEN AND UNLABORED. HEART RHYTHM REGULAR. ACTIVE BS IN ALL QUADRANTS. ABDOMEN SOFT AND NON-DISTENDED. CONTINUOUS G-TUBE FEEDING. SKIN INTACT. PT IS NON-AMBULATORY PER SITE LEASING AGENT RN. IV SITE PATENT AND ASYMPTOMATIC, ON SL. ALL SAFETY PRECAUTIONS IN PLACE, WILL CONTINUE TO MONITOR. Addendum: 03/10/19 at 1030 by Shireen Spain Meng, RN AOX1
[2019-03-10] MEDS: ALBUTEROL SULFATE/IPRATROPIU 3 ML SOL IH SCH ×3 (07:26→19:19)
[2019-03-10 08:00] VITALS: BP 130/57
--- NOTE | 2019-03-10 09:28 | NUR ---
SS SPEAKING WITH FAMILY AT BEDSIDE.
[2019-03-10] MEDS: LACTULOSE 20 GM/30 ML UDC PO SCH (09:45)
[2019-03-10] MEDS: PROPRANOLOL 20 MG TAB GT SCH (09:46)
[2019-03-10] MEDS: levETIRAcetam 100 MG/ML ORASYR GT SCH (09:46)
[2019-03-10] MEDS: MULTIVITAMIN 1 TAB PO SCH (09:46)
[2019-03-10] MEDS: LISINOPRIL 5 MG TAB PO SCH (09:46)
[2019-03-10] MEDS: PANTOPRAZOLE 40 MG TABEC PO SCH (09:46)
[2019-03-10] MEDS: THIAMINE 100 MG TAB PO SCH (09:46)
[2019-03-10] MEDS: RIFAXIMIN 550 MG TAB GT SCH (09:47)
[2019-03-10] MEDS: SPIRONOLACTONE 50 MG TAB GT SCH (09:47)
--- NOTE | 2019-03-10 10:26 | NUR ---
SPEECH THERAPIST HERE TO PERFORM SWALLOW EVAL.
--- NOTE | 2019-03-10 10:36 | NUR ---
ST RECOMMENDS TO CONTINUE WITH G-TUBE FEEDING, NO ORAL INTAKE AT THIS TIME.
--- NOTE | 2019-03-10 10:40 | NUR ---
PEOPLESOFT ANALYST note [id number]. PEOPLESOFT ANALYST provided pt with dysphagia therapy following clearance by RN (Shireen). Pt was lethargic and required frequent/repeated verbal and gentle tactile cues by PEOPLESOFT ANALYST to attain basic alertness. Pt was positioned fully upright in bed for dysphagia therapy session using HOB elevation and bed tilt functions. At end of dysphagia therapy session, pt was returned to low/locked bed position with HOB about 45 degrees. Pt accepted x3 PO trials of thin water by spoon. Pt demonstrated delayed/multiple swallow pattern for each PO trial. Pt then declined any further PO trials stating "tomorrow", despite encouragement by PEOPLESOFT ANALYST. Pt indicated mouth discomfort and when PEOPLESOFT ANALYST able to learn from pt that she wanted mouth moisturizer applied, then PEOPLESOFT ANALYST applied mouth moisturizer to pt's lips with good result in pt's indicated comfort. Pt then fell back asleep. PEOPLESOFT ANALYST provided pt with education regarding purpose of PEOPLESOFT ANALYST's visit and rationale for recommendations. Pt lethargic and unable to demonstrate ability to benefit optimally from education provided. No family present at this time. Recommend: 1) continue NPO with alternative method(s) of nutrition/hydration/medication vs comfort measures, as appropriate 2) if pt FULLY awake/alert/upright, pt may be able to take oral gratification amounts of mechanical soft chopped textures with thin liquids via small/slow bites and sips with STRICT aspiration precautions; however, pt does not appear likely to be able to support her needs via PO only at this time. 3) PEOPLESOFT ANALYST to f/u x1-2 additional dysphagia therapy sessions if pt does not discharge back to SNF soon, otherwise SNF PEOPLESOFT ANALYST to f/u for dysphagia, as appropriate. G-codes: [id number] [facility] NOMS level 4
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
--- NOTE | 2019-03-10 12:36 | NUR ---
GASTRIC RESIDUAL AT 110 ML. WILL CONTINUE TO MONITOR. PT SLEEPING IN BED WITH LIGHT SNORING, NO S/S DISTRESS.
--- NOTE | 2019-03-10 13:11 | NUR ---
Dancing Teacher Note: I called Labor Relations Director from [facility] to request care home snf placement authorization and transportation authorization, no answer, left message.
--- NOTE | 2019-03-10 14:15 | NUR ---
Design Director Note: I called Prefitter from [facility] to request group home snf placement authorization and transportation authorization, no answer, left another message. I received a call from [facility], she stated not to leave more than one message per patient. She told me she will contact me today to provide me with group home snf placement authorization and transportation authorization. I faxed 's snf order to [facility].
--- NOTE | 2019-03-10 14:22 | NUR ---
Esthetician Note: Per Intervention Nurse from [facility] placement authorization is [id number] and transportation authorization is [id number] , case checker Martha made aware.
--- NOTE | 2019-03-10 14:23 | NUR ---
PATIENT RESTING IN BED, NO S/S DISTRESS. ALL SAFETY PRECAUTIONS IN PLACE, WILL CONTINUE TO MONITOR.
--- NOTE | 2019-03-10 14:31 | NUR ---
CALLED [facility] SPOKE WITH VIVI PROVIDED THE AUTH # [id number] FOR [facility] BED AND ARRANGED TRANSPORT WITH [facility] PRUETT ,ETL CONSULTANT TIME 8PM. PROVIDED AUTH # [id number]
--- NOTE | 2019-03-10 15:50 | NUR ---
NOTIFIED [facility] KUMAR [phone] OF PLAN TO TRANSFER TO [facility] FOR SHELTER CARE AT 8PM TODAY. IS AMENABLE TO POC.
--- NOTE | 2019-03-10 15:51 | NUR ---
PT CAN GO TO ROOM 40A AT [facility] APPOINTMENT MANAGER TIME AT 2000 BRIDGETT LIVINGSTON AWARE OF IT.
--- NOTE | 2019-03-10 15:53 | NUR ---
LEFT MESSAGE FOR [facility] KUMAR [phone] REGARDING PNEUMOVAX STATUS.
[2019-03-10 16:00] VITALS: BP 115/73
--- NOTE | 2019-03-10 16:46 | NUR ---
D/C Planning: Called Venu left message for call back as follow up from previous conversation regarding concerns about transferring back to [facility]. Venu Bhatti called back advised after speaking with [facility] staff they agree they can check labs twice a month as directed by the SNF MD. Shared with [facility] husbands concerns about limited visiting hours. [facility] staff to follow up with him about their policies for visitors. Venu Patient's agreeable to transfer to [facility] at 1999 as planned by BALA.
--- NOTE | 2019-03-10 17:21 | NUR ---
LEFT MESSAGE FOR JH JOSÉ [phone] REGARDING PNEUMOVAX STATUS. ALSO LEFT MESSAGE TELLING HIM THAT PATIENT STATES SHE WANTS TO SEE HIM, NO SPECIFIC CONCERNS.
--- NOTE | 2019-03-10 18:30 | NUR ---
ENDORSED POC TO ROSA LIVINGSTON AT [facility].
--- NOTE | 2019-03-10 19:10 | NUR ---
RECIEVED PT. AWAKE ,ALERT ,BUT LIMITED COGNITIVE ASPECT DUE TO MEDICAL CONDITION, NID,WITH ON GOING TUBE FEEDING INTACT ,AND IV SITE INTACT AND PATENT, V/S WITHIN NORMAL LIMITS FOR DISCHARGE TO FACILITY TODAY .ON fallUION PROTOCOL ,RELATIVES IN BEDSIDE .
--- NOTE | 2019-03-10 21:10 | NUR ---
DISCHARGE INSTRUCTION GIVEN AND SIGNED WITH PT.'S BROTHER PER PERMISSION OF PT'S PER TELEPHONE. TUBE FEEDING DISCONTINUED AND FLUSHED , IV CANULLA REMOVED WITH INTACT NEEDLE ,NAME TAG REMOVED. PICKED UP BY EMS TO FACILITY. Addendum: 03/10/19 at 2115 by Miriam Abad RN DISCHARGED WITH RELATIVES Addendum: 03/10/19 at 7094 by Miriam Abad RN PT'S REFUSED FOR PNM. VACCINE. CHARGED NURSE INFORMED.
== END 2019-03-10 21:00 | DRG 441 ==
LOC: MED 19:49 → MTU 22:25
PROVIDERS: ADMIT General Practice; ATTEND General Practice
DX: K72.90 Hepatic failure, unspecified without coma (principal); N17.0 Acute kidney failure with tubular necrosis; R53.2 Functional quadriplegia; K86.1 Other chronic pancreatitis; D69.6 Thrombocytopenia, unspecified; K21.9 Gastro-esophageal reflux disease without esophagitis; F03.90 Unspecified dementia, unspecified severity, without behavioral disturbance, psychotic disturbance, mood disturbance, and anxiety; K74.60 Unspecified cirrhosis of liver; G40.909 Epilepsy, unspecified, not intractable, without status epilepticus; E05.90 Thyrotoxicosis, unspecified without thyrotoxic crisis or storm; I10 Essential (primary) hypertension; E78.5 Hyperlipidemia, unspecified; D63.8 Anemia in other chronic diseases classified elsewhere; R16.1 Splenomegaly, not elsewhere classified; K59.00 Constipation, unspecified; R73.9 Hyperglycemia, unspecified; Z86.73 Personal history of transient ischemic attack (TIA), and cerebral infarction without residual deficits; Z79.899 Other long term (current) drug therapy; Z93.0 Tracheostomy status; Z93.1 Gastrostomy status
CPT/HCPCS: 36415; 70450; 71045; 76700; 80048; 80053; 80305; 81003; 82140; 82272; 82550; 82948; 83036; 83605; 83690; 83735; 83880; 84100; 84134; 84443; 84479; 84484; 85025; 85610; 85730; 87040; 87081; 87086; 92610; 92700; 93005; 94640; 96360; 97110; 97161-GP; 97530; 99285; C1758; J1815; J2060; J7030; J7042; J7620; Q0092